=== PATIENT | male | born 1955 | race Caucasian/White ===

== ENCOUNTER 2022-11-06 14:42 | Outpatient (CLI) | payer MEDICARE, OTHER | END 2022-11-06 14:43 | disposition home or self-care (01) | LOC: SCSMRI 14:42 | PROVIDERS: ATTEND Psychiatry & Neurology Neurology | DX: M50.01 Cervical disc disorder with myelopathy, high cervical region (principal); M51.04 Intervertebral disc disorders with myelopathy, thoracic region; G93.0 Cerebral cysts | CPT/HCPCS: 70553; 72156; 72157 ==